=== PATIENT | male | born 1985 | race Caucasian/White ===

== ENCOUNTER 2019-12-22 08:43 | Emergency (ER) | payer BC ==
[2019-12-22] MEDS ORDERED: NORMAL SALINE 1000 ML 1,000 ML IV ONE (09:30)
--- NOTE | 2019-12-22 09:32 | ER Document Report ---
ED Medical Screen (RME) - General Chief Complaint: Bloody Stools Stated Complaint: BLOOD IN STOOL Time Seen by Provider: 12/22/19 09:26 Notes: Patient is a 33-year-old male who presents the emergency department with a chief complaint of blood in his stool. Patient reports on Sunday he noticed blood in the stool. Patient reports having about 10 episodes of diarrhea per day since then. Patient reports initially his left lower quadrant abdominal pain was not bad but has continued to get worse throughout the weekend. Patient does have a history of ulcerative colitis. Patient denies fever, vomiting. Patient denies any surgical history. Patient reports he feels like he is having left lower quadrant cramping. TRAVEL OUTSIDE OF THE [place] IN LAST 30 DAYS: No - Related Data Home Medications: Mesalamine, Fish Oil Past Medical History - Social History Frequency of alcohol use: Occasional Physical Exam - Vital signs Vitals: Temp Pulse Resp BP Pulse Ox 97.5 F 63 16 166/73 H 100 12/22/19 08:48 12/22/19 08:48 12/22/19 08:48 12/22/19 08:48 12/22/19 08:48 - Abdominal Inspection: Normal Distension: No distension Bowel sounds: Hyperactive Tenderness: Tender - Minimal left lower quadrant tenderness Course - Re-evaluation Re-evalutation: 12/22/19 09:32 Patient require a thorough abdominal exam once placed in a private room. Patient is nontoxic-appearing at this time. Will initiate IV fluids, basic labs and a urinalysis. I have greeted and performed a rapid initial assessment of this patient. A comprehensive ED assessment and evaluation of the patient, analysis of test results and completion of the medical decision making process will be conducted by additional ED providers. - Vital Signs Vital signs: Temp Pulse Resp BP Pulse Ox 97.5 F 63 16 166/73 H 100 12/22/19 08:48 12/22/19 08:48 12/22/19 08:48 12/22/19 08:48 12/22/19 08:48
[2019-12-22 10:48] LABS: ABSOLUTE EOSINOPHILS # (AUTO) 0.4 10^3/uL (0.0-0.6); ABSOLUTE LYMPHOCYTES (AUTO) 1.7 10^3/uL (0.5-4.7); ABSOLUTE MONOCYTES (AUTO) 0.7 10^3/uL (0.1-1.4); ABSOLUTE NEUT (AUTO) 6.2 10^3/uL (1.7-8.2); BASOPHILS % (AUTO) 0.4 % (0-2); EOSINOPHILS % (AUTO) 4.7 % (0-6); HEMATOCRIT 45.3 % (37.9-51.0); HEMOGLOBIN 15.6 g/dL (13.5-17.0); LYMPHOCYTES % (AUTO) 18.6 % (13-45); MEAN CORPUSCULAR HEMOGLOBIN 30.8 pg (27.0-33.4); MEAN CORPUSCULAR HGB CONC 34.4 g/dL (32.0-36.0); MEAN CORPUSCULAR VOLUME 90 fl (80-97); MONOCYTES % (AUTO) 7.5 % (3-13); PLATELET COUNT 239 10^3/uL (150-450); RED BLOOD COUNT 5.05 10^6/uL (4.35-5.55); RED CELL DISTRIBUTION WIDTH 13.5 % (11.5-14.0); SEGMENTED NEUTROPHILS % (AUTO) 68.8 % (42-78); TOTAL CELLS COUNTED % (AUTO) 100 %
[2019-12-22 10:55] LABS: APPEARANCE,URINE CLEAR; BILIRUBIN,URINE NEGATIVE (NEGATIVE); GLUCOSE, URINE NEGATIVE (NEGATIVE); KETONES,URINE 20 mg/dL (NEGATIVE); LEUKOCYTE ESTERASE,URINE NEGATIVE (NEGATIVE); NITRITE,URINE NEGATIVE (NEGATIVE); PROTEIN,URINE 30 mg/dL (NEGATIVE); URINE SPECIFIC GRAVITY 1.028; UROBILINOGEN,URINE NEGATIVE mg/dL (<2.0)
[2019-12-22 10:56] LABS: COLOR,URINE YELLOW
[2019-12-22 11:10] LABS: ALBUMIN 4.1 g/dL (3.5-5.0); ALKALINE PHOSPHATASE 87 U/L (38-126); ANION GAP 9 (5-19); ASPARTATE AMINO TRANSFERASE 19 U/L (17-59); BILIRUBIN,TOTAL 0.8 mg/dL (0.2-1.3); BLOOD UREA NITROGEN 11 mg/dL (7-20); CALCIUM 9.6 mg/dL (8.4-10.2); CARBON DIOXIDE 28 mmol/L (22-30); CHLORIDE 103 mmol/L (98-107); GLUCOSE 81 mg/dL (75-110); POTASSIUM 4.5 mmol/L (3.6-5.0); TOTAL PROTEIN 7.1 g/dL (6.3-8.2)
--- NOTE | 2019-12-22 11:36 | ER Document Report ---
ED General - General Chief Complaint: Bloody Stools Stated Complaint: BLOOD IN STOOL Time Seen by Provider: 12/22/19 09:26 Mode of Arrival: Ambulatory Information source: Patient TRAVEL OUTSIDE OF THE [place] IN LAST 30 DAYS: No - HPI Onset: Other - since Sunday (3 days ago) Onset/Duration: Gradual Quality of pain: Cramping, Sharp Severity: Moderate Pain Level: 3 Associated symptoms: Diarrhea, Other - blood in stool, LLQ adbominal pain Exacerbated by: Other - bowel movements make his abdominal pain and GI Bleeding worse Relieved by: Denies Similar symptoms previously: No Recently seen / treated by doctor: No Notes: 33 year old male with a history of Ulcerative Colitis maintained on here for 3 days of LLQ abdominal pain, bloody diarrhea, and mild weakness. The patient says the abdominal pain and GI bleeding is made worse when he has a bowel movement. The patient denies fevers, chills, sweats, nausea, vomiting. The patient has not had an Ulcerative Colitis flare up like this in the past. The patient denies known sick contacts or recent travel. - Related Data Home Medications: Mesalamine, Fish Oil Past Medical History - General Information source: Patient - Social History Smoking Status: Never Smoker Frequency of alcohol use: Occasional Drug Abuse: None Lives with: Alone Family History: Reviewed & Not Pertinent Patient has suicidal ideation: No Patient has homicidal ideation: No Pulmonary Medical History: Reports: None EENT Medical History: Reports: None Neurological Medical History: Reports: None Endocrine Medical History: Reports: None Renal/ Medical History: Reports: None Malignancy Medical History: Reports None GI Medical History: Reports: Hx Ulcerative Colitis Musculoskeletal Medical History: Reports None Skin Medical History: Reports None Psychiatric Medical History: Reports: None Traumatic Medical History: Reports: None Infectious Medical History: Reports: None Surgical Hx: Negative Past Surgical History: Reports: None Review of Systems - Review of Systems Constitutional: No symptoms reported EENT: No symptoms reported Cardiovascular: No symptoms reported Respiratory: No symptoms reported Gastrointestinal: Abdominal pain, Diarrhea, Rectal bleeding Genitourinary: No symptoms reported Male Genitourinary: No symptoms reported Musculoskeletal: No symptoms reported Skin: No symptoms reported Hematologic/Lymphatic: No symptoms reported Neurological/Psychological: No symptoms reported Physical Exam - Vital signs Vitals: Temp Pulse Resp BP Pulse Ox 97.5 F 63 16 166/73 H 100 12/22/19 08:48 12/22/19 08:48 12/22/19 08:48 12/22/19 08:48 12/22/19 08:48 - Notes Notes: GENERAL: Well-appearing, well-nourished and in no acute distress. HEAD: Atraumatic, normocephalic. EYES: Pupils equal round and reactive to light, extraocular movements intact, sclera anicteric, conjunctiva are normal. ENT: TMs normal, nares patent, oropharynx clear without exudates. Moist mucous membranes. NECK: Normal range of motion, supple without lymphadenopathy or JVD. LUNGS: Breath sounds clear to auscultation bilaterally and equal. No wheezes rales or rhonchi. HEART: Regular rate and rhythm without murmurs, rubs or gallops. ABDOMEN: Soft, mild tenderness in LLQ, normoactive bowel sounds. No guarding, no rebound. No masses appreciated. EXTREMITIES: Normal range of motion, no pitting or edema. No clubbing or cyanosis. NEUROLOGICAL: Cranial nerves II through XII grossly intact. Normal speech, normal gait. PSYCH: Normal mood, normal affect. SKIN: Warm, Dry, normal turgor, no rashes or lesions noted. Course - Re-evaluation Re-evalutation: 12/22/19 11:38 The patient is here for bloody diarrhea and LLQ abdominal pain. He has a history of Ulcerative Colitis and he is followed by a GI Group in [place]. The patie nt has a stable H/H and normal chemistries today. Plan to CT patient and to touch base with his GI Doctor once the CT results are back. Patient treated with fluids in the ER. He does not want anything for pain at this time. 12/22/19 12:[address] shows colitis which is likely due to his known UC. Patient could have a viral illness causing the colitis or it could be from his history of UC. I spoke with his APC (CHRISTOPHER Wren) from his GI clinic. CHRISTOPHER Combs will have the patient follow up in clinic and she recommends a long prednisone taper starting at 40mg daily and going down to 10mg daily. Patient was provided with a copy of his abdominal CT report. 12/22/19 16:07 - Vital Signs Vital signs: Temp Pulse Resp BP Pulse Ox 97.9 F 60 15 138/83 H 100 12/22/19 14:47 12/22/19 14:47 12/22/19 14:47 12/22/19 14:47 12/22/19 14:47 - Laboratory Result Diagrams: 12/22/19 10:38 12/22/19 10:38 Laboratory results interpreted by me: 12/22/19 10:12 Urine Protein 30 H Urine Ketones 20 H Discharge - Discharge Clinical Impression: Ulcerative colitis Qualifiers: Ulcerative colitis location: unspecified ulcerative colitis location Digestive disease complication type: without complication Qualified Code(s): K51.90 - Ulcerative colitis, unspecified, without complications Condition: Stable Disposition: HOME, SELF-CARE Additional Instructions: Take Prednisone as prescribed. Follow up with your GI Doctor in the next several days in the [facility] or at the [facility] (call to make an appointment). I spoke with Mei Combs of your GI Clinic about your ER visit today. Use Tylenol and Motrin for pain. Return to an ER for uncontrolled pain, fevers, chills, sweats or if worse. Prescriptions: Prednisone 10 mg PO DAILY 20 Days #50 tablet
--- NOTE | 2019-12-22 12:02 | RADIOLOGY REPORT (SQ) ---
EXAM DESCRIPTION: CT ABD/PELVIS WITH IV ONLY COMPLETED DATE/TIME: 12/22/2019 11:41 am REASON FOR STUDY: LLQ pain. history of ulcerative colitis. GI bleed COMPARISON: None. TECHNIQUE: CT scan of the abdomen and pelvis performed using helical scanning technique with dynamic intravenous contrast injection. No oral contrast. Images reviewed with lung, soft tissue, and bone windows. Reconstructed coronal and sagittal MPR images reviewed. Delayed images for evaluation of the urinary system also acquired. All images stored on PACS. All CT scanners at this facility use dose modulation, iterative reconstruction, and/or weight based d osing when appropriate to reduce radiation dose to as low as reasonably achievable (ALARA). [facility]: Dose Right [facility]: CareDose [facility]: Dose Right [facility]: Teradose 4D [facility]: [facility] CONTRAST TYPE AND DOSE: contrast/concentration: Isovue 350.00 mg/ml; Total Contrast Delivered: 90.0 ml; Total Saline Delivered: 70.0 ml RENAL FUNCTION: BUN 11, creatinine 1.13 RADIATION DOSE: CT Rad equipment meets quality standard of care and radiation dose reduction techniq ues were employed. CTDIvol: 6.3 - 8.5 mGy. DLP: 798 mGy-cm.. LIMITATIONS: None. FINDINGS: LOWER CHEST: No significant findings. No nodules or infiltrates. LIVER: Normal size. No masses. No dilated ducts. SPLEEN: Normal size. No focal lesions. PANCREAS: No masses. No significant calcifications. No adjacent inflammation or peripancreatic fluid collections. Pancreatic duct not dilated. GALLBLADDER: No identified stones by CT criteria. No inflammatory changes to suggest cholecystitis. ADRENAL GLANDS: No significant masses or asymmetry. RIGHT KIDNEY AND URETER: No solid masses. No significant calcifications. No hydronephrosis or hyd roureter. LEFT KIDNEY AND URETER: No solid masses. No significant calcifications. No hydronephrosis or hydr oureter. AORTA AND VESSELS: No aneurysm. No dissection. Renal arteries, SMA, celiac without stenosis. RETROPERITONEUM: No retroperitoneal adenopathy, hemorrhage or masses. BOWEL AND PERITONEAL CAVITY: There is bowel wall thickening involving portions of the transverse colo n and descending colon. There is involvement of the sigmoid. There are normal-appearing regions inc luding the cecal and splenic flexure. Mild surrounding mesenteric inflammation. There is a small am ount of free fluid. APPENDIX: Not visualized. PELVIS: No mass. No free fluid. Normal bladder. ABDOMINAL WALL: No masses. No hernias. BONES: No significant or acute findings. OTHER: No other significant finding. IMPRESSION: Scattered areas of bowel wall thickening involving the colon with a small amount of surr ounding inflammatory change and free fluid. Findings are consistent with inflammatory colitis. Find ings are consistent with a history of also colitis. No focal abscess or fluid collection. No free a ir. TECHNICAL DOCUMENTATION: JOB ID: [id number] Quality ID # [id number]: Final reports with documentation of one or more dose reduction techniques (e.g., Au tomated exposure control, adjustment of the mA and/or kV according to patient size, use of iterative reconstruction technique) 2010 [facility]- All Rights Reserved Reading location - IP/workstation name: [email or web address]
[2019-12-22 14:46] VITALS: BP 138/83
== END 2019-12-22 14:47 | disposition home or self-care (01) ==
LOC: ER 08:43
DX: K51.90 Ulcerative colitis, unspecified, without complications (principal); K92.1 Melena; R19.7 Diarrhea, unspecified; R10.32 Left lower quadrant pain; R53.1 Weakness
CPT/HCPCS: 99284; 96360; 36415; 85025; 80053; 81001; 74177; J7030